=== PATIENT | female | born 1965 | race African-American/Black ===

== ENCOUNTER 2016-12-15 13:29 | Emergency (ER) | payer OTHER ==
[~2016-12-15] VITALS: Ht 167.6 cm; Wt 149.7 kg
[~2016-12-15 13:29] MED LIST: IBUPROFEN 800800 MG PO; MECLIZINE HCL25 M1 PO; NOHOMEMEDICATIONS; PREDNISONE50 MG PO
[2016-12-15 14:32] LABS: URINE BILIRUBIN NEGATIVE (Negative); URINE BLOOD 3+ (Negative); URINE COLOR YELLOW; URINE GLUCOSE-RANDOM* NEGATIVE (Negative); URINE KETONES NEGATIVE (Negative); URINE NITRITE POSITIVE (Negative); URINE PROTEIN (DIPSTICK) 2+ (Negative)
[2016-12-15] MEDS ORDERED: MACROBID 100 M100 M1 PO (14:35)
[2016-12-15 14:36] LABS: BACTERIA >30 Many /HPF (None Seen); CASTS None Seen /LPF (None Seen); CRYSTALS None Seen /LPF (None Seen); SQUAMOUS 0-3 Few /LPF (0-3); URINE RBC >20 Many /HPF (0-2); URINE WBC >25 Many /HPF (0-5)
[2016-12-15 15:05] VITALS: BP 148/89
== END 2016-12-15 15:06 | disposition home or self-care (01) ==
LOC: ER 13:29
PROVIDERS: Nurse Practitioner Family
DX: N39.0 Urinary tract infection, site not specified (principal); Z87.440 Personal history of urinary (tract) infections

== ENCOUNTER 2017-08-15 22:31 | Emergency (ER) | payer OTHER ==
[~2017-08-15] VITALS: Ht 167.6 cm; Wt 147.4 kg
[~2017-08-15 22:31] MED LIST changes: +MACROBID 100 M100 M1 PO
== END 2017-08-16 00:47 | disposition home or self-care (01) ==
LOC: ER 22:31
DX: S92.401A Displaced unspecified fracture of right great toe, initial encounter for closed fracture (principal); W01.0XXA Fall on same level from slipping, tripping and stumbling without subsequent striking against object, initial encounter; Y93.89 Activity, other specified; Y92.89 Other specified places as the place of occurrence of the external cause; Y99.8 Other external cause status

== ENCOUNTER 2018-10-15 05:01 | Emergency (ER) | payer OTHER ==
[~2018-10-15] VITALS: Ht 167.6 cm; Wt 147.4 kg
[2018-10-15 05:45] LABS: URINE BILIRUBIN NEGATIVE (Negative); URINE BLOOD 3+ (Negative); URINE CLARITY CLOUDY; URINE COLOR YELLOW; URINE GLUCOSE-RANDOM* NEGATIVE (Negative); URINE KETONES NEGATIVE (Negative); URINE NITRITE-REFLEX NEGATIVE (Negative); URINE PROTEIN (DIPSTICK) TRACE (Negative); URINE SPECIFIC GRAVITY 1.025 (1.005-1.035); URINE UROBILINOGEN 0.2 E.U./dl (0.2-1.0)
[2018-10-15 05:46] LABS: URINE LEUKOCYTES-REFLEX 3+ (Negative)
[2018-10-15 05:53] LABS: BACTERIA-REFLEX >30 Many /HPF (None Seen); CASTS None Seen /LPF (None Seen); CRYSTALS None Seen /LPF (None Seen); MUCUS 0-3 Light strn/LPF (None Seen); SQUAMOUS 0-3 Few /LPF (0-3); URINE RBC >20 Many /HPF (0-2); URINE WBC-REFLEX >25 Many /HPF (0-5); WBC CLUMPS Moderate (None Seen)
[2018-10-15] MEDS ORDERED: KEFLEX500 M1 PO (05:56)
[2018-10-15 06:10] VITALS: BP 166/72
== END 2018-10-15 06:10 | disposition home or self-care (01) ==
LOC: ER 05:01
PROVIDERS: Student in an Organized Health Care Education/Training Program
DX: N39.0 Urinary tract infection, site not specified (principal); Z87.440 Personal history of urinary (tract) infections